=== PATIENT | male | born 1950 | race Caucasian/White ===

== ENCOUNTER 2019-07-26 05:34 | Day surgery (SDC) | payer BC, MEDICARE ==
[2019-07-26] MEDS ORDERED: MIDAZOLAM HCL 2MG/2ML VIAL IV ONE (05:35)
[2019-07-26] MEDS ORDERED: FENTANYL PF 100MCG/2ML VIAL IV ONE (05:35)
[2019-07-26] MEDS ORDERED: LIDOCAINE 2% MDV (20MG/ML) 20ML VIAL IV ONE (05:35)
[2019-07-26] MEDS ORDERED: PROPOFOL 10 MG/ML VIAL IV ONE (05:35)
[2019-07-26] MEDS ORDERED: RINGERS SOLUTION,LACTATED 1,000 ML IV ONE (06:15)
[2019-07-26] MEDS ORDERED: LIDOCAINE 1% W/EPI 1:200,000 MPF 30ML SQ ONE (07:30)
[2019-07-26] MEDS ORDERED: DEXAMETHASONE PRESERVATIVE FREE 10MG/ML VIAL IM ONE (07:31)
[2019-07-26] MEDS ORDERED: BUPIVACAINE 0.5% W/EPI MPF 30 ML VIAL SQ ONE (07:31)
[2019-07-26] MEDS ORDERED: BUPIVACAINE 0.5% (5MG/ML) PF 30ML VIAL IM ONE (07:31)
--- NOTE | 2019-07-26 10:22 | Operative Note - [place] ---
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 OPERATION: FLUOROSCOPICALLY GUIDED INFILTRATION BLOCK BILATERAL LUMBAR FACETS L3-L4, L4-L5, AND L5-S1. SURGEON: Carmelo Chandler D.O. INDICATION: This patient presents with pain which is low back. Examination with tenderness lumbar spine. Range of motion does cause pain to the low back with extension. Diagnostic imaging shows diffuse multiple level spondylitic change. PROCEDURE: Intravenous line, vital sign monitoring, IV sedation, prepped and draped, sterile technique. Under imaging the facet levels of the lumbar spine in the area of pain were identified and marked L3-L4, L4-L5 and L5-S1 bilateral. Each one of these points on the skin were infiltrated. A 22-gauge 3-1/2 inch needle into the facet with 1 ml of 0.5% Marcaine and Dexamethasone injected. This was repeated at each of the sites bilaterally. The areas were cleaned, topical antibiotic and sterile dressings were applied. Will monitor and evaluation. JOB NUMBER: [id number] MTDD
== END 2019-07-26 07:59 | disposition home or self-care (01) ==
LOC: SUR 05:34
PROVIDERS: ATTEND Pain Medicine Interventional Pain Medicine
DX: M47.816 Spondylosis without myelopathy or radiculopathy, lumbar region (principal); I10 Essential (primary) hypertension; E78.00 Pure hypercholesterolemia, unspecified; K21.9 Gastro-esophageal reflux disease without esophagitis; B19.20 Unspecified viral hepatitis C without hepatic coma
CPT/HCPCS: 64493; 64494; 64495; 01936; 82948; 36416; J1100; J3010; J7120